=== PATIENT | male | born 1945 | race Caucasian/White ===

== ENCOUNTER 2023-05-07 11:47 | Emergency (ER) | payer OTHER, SELFPAY ==
[2023-05-07 11:56] VITALS: BP 133/61; PULSE 69; RESP 19; TEMP 36.4; O2SAT 96
[2023-05-07 12:05] VITALS: PULSE 65
--- NOTE | 2023-05-07 12:07 | ECG_ITS ---
Measurements Intervals [place] Rate: 62 P: 59 [place]: 184 QRS: 7 QRSD: 104 T: 32 QT: 411 QTc: 420 Interpretive Statements SINUS RHYTHM BASELINE ARTIFACT- I, II, AVR NORMAL ECG NO PREVIOUS ECG AVAILABLE FOR COMPARISON Electronically Signed On 05-07-2023 12:11:40 CDT by Pastor Ocampo D.O.
[2023-05-07 12:30] VITALS: BP 116/54; PULSE 80; RESP 18; O2SAT 100
--- NOTE | 2023-05-07 13:46 | ED.WEAKNESS ---
HPI - Weakness General Chief complaint: Weakness Stated complaint: dizzy Time Seen by Provider: 05/07/23 13:21 History of Present Illness HPI Narrative: This is a 77-year-old male, who presents emergency department complaining of intermittent weakness now improved. The patient states he was at a routine follow-up appointment with his primary care doctor, when while leaving he became generally weak and felt lightheaded. He denies any recent change in medications, known sick contacts, nausea/vomiting, chest pain or shortness of breath. He now states he feels significantly improved and has no complaints. Related Data Allergies Allergy/AdvReac Type Severity Reaction Status Date / Time Sulfa (Sulfonamide Allergy Hives Verified 05/07/23 12:03 Antibiotics) Review of Systems Review of Systems: CONSTITUTIONAL: Denies fever, chills, or sweats. CARDIOVASCULAR: Denies chest pain, palpitations, or edema. RESPIRATORY: Denies cough or dyspnea. GASTROINTESTINAL: Denies abdominal pain, nausea, vomiting, or diarrhea. GENITOURINARY: Denies dysuria or hematuria. SKIN: Denies rash or itching. MUSCULOSKELETAL: Denies back pain, joint pain, or myalgia. NEUROLOGIC: Generalized weakness now improved denies headache, numbness, dizziness PSYCHIATRIC: Denies anxiety or depression. [facility] Past Medical History Medical History (Updated 05/07/23 @ 19:42 by Andreas Lanza MD) Diabetes mellitus Hyperlipidemia Hypertension Social History Social History (Updated 05/07/23 @ 19:42 by Andreas Lanza MD) Smoking status: Never smoker Alcohol intake: never Substance use: never Exam Narrative: GENERAL: Well-developed, well-nourished, and in no acute distress. HEAD: Normocephalic, atraumatic. EYES: PERRLA and EOMI. CHEST: Clear to auscultation. No respiratory distress. No wheezes rales or rhonchi HEART: Regular rate and rhythm. No murmur heard. Normal peripheral pulses. ABDOMEN: Soft, nontender, nondistended, normal active bowel sounds. EXTREMITIES: Normal range of motion. No edema. SKIN: Warm, dry, no rash. NEURO: Alert and oriented x3. Moving all 4 limbs purposefully. PSYCH: Normal mood and affect. Course Course Emergency Course: 13:35 - On evaluation, the patient states he feels significantly improved and at his normal. He politely declines evaluation beyond EKG and [id number] glucose evaluation. 13:50 - The patient's blood glucose is 136, this correlates with his blood glucose monitor. EKG not concerning for ischemia or arrhythmia. Will discharge. I advised the patient to follow-up with his primary care doctor. Discussed return and emergency precautions including signs/symptoms of ACS and respiratory distress. The patient voiced understanding and is comfortable with the plan. All questions answered to his satisfaction. Vital Signs Vital signs: Vital Signs Temperature 97.6 F 05/07/23 11:56 Pulse Rate 69 05/07/23 11:56 Respiratory Rate 19 05/07/23 11:56 Blood Pressure 133/61 05/07/23 11:56 Pulse Oximetry 96 05/07/23 11:56 Oxygen Delivery Room Air 05/07/23 11:56 Temperature 97.6 F 05/07/23 11:56 Pulse Rate 73 05/07/23 14:01 Respiratory Rate 16 05/07/23 14:01 Blood Pressure 108/69 05/07/23 14:01 Pulse Oximetry 99 05/07/23 14:01 Oxygen Delivery Room Air 05/07/23 11:56 MDM - Weakness MDM Narrative Medical decision making narrative: Plan: Fingerstick glucose, reassess Differential Diagnosis Differential diagnosis: Likely hypoglycemia, dehydration and other (Metabolic abnormality, orthostatic hypotension, arrhythmia, other) Lab Data 05/07/23 13:43 Labs: Lab Results 05/07/23 05/07/23 Range/Units 13:39 13:43 Glucose 146 H (65-110) mg/dL POC Capillary Glucose 136 H (65-105) mg/dl ECG Data EKG #1: Attestation: I personally reviewed and interpreted this ECG as follows: ECG completion date: 05/07/23 E
[2023-05-07 13:48] LABS: Glucose Point of Care 136 mg/dl (65-105)
[2023-05-07 13:56] LABS: Glucose 146 mg/dL (65-110)
[2023-05-07 14:01] VITALS: BP 108/69; PULSE 73; RESP 16; O2SAT 99
== END 2023-05-07 14:03 | disposition home or self-care (01) ==
PROVIDERS: Emergency Provider Preventive Medicine Aerospace Medicine
DX: R42 Dizziness and giddiness (principal); E11.9 Type 2 diabetes mellitus without complications; E78.5 Hyperlipidemia, unspecified; I10 Essential (primary) hypertension
CPT/HCPCS: 36415; 82947; 82948; 93005; 99283